=== PATIENT | female | born 1960 | race Caucasian/White ===

== ENCOUNTER 2022-01-14 08:21 | Day surgery (SDC) | payer BC ==
[~2022-01-14 08:21] MED LIST: Albuterol 0.083% 2.5 MG/3 ML Neb Soln NEB PRN; Clindamycin Phosphate in D5W 300 MG in Premix Bag 1 BAG IV ONE; HYDROmorphone 1 MG/ML Syringe IVPUSH PRN; Lactated Ringers 1,000 ML IV SCH; Metoclopramide 10 MG/2 ML SDV IVPUSH PRN; Morphine 4 MG/ML VIAL IVPUSH PRN; Naloxone 0.4 MG/ML SDV IVPUSH PRN; Ondansetron 4 MG/2 ML SDV IVPUSH PRN; Pregabalin 75 MG Cap PO SCH; Scopolamine 1.5 MG Transdermal Patch TRDERM ONE; fentaNYL 100 MCG/2 ML SDV IVPUSH PRN
[2022-01-14] MEDS: Clindamycin Phosphate in D5W 50 ML IV ONE ×2 (09:35→09:54)
[2022-01-14] MEDS ORDERED: fentaNYL 250 MCG/5 ML SDV ONE (09:49)
[2022-01-14] MEDS ORDERED: Propofol 200 MG/20 ML SDV ONE (09:49)
[2022-01-14] MEDS ORDERED: Bupivacaine 0.25% 30 ML SDV ONE (10:03)
[2022-01-14] MEDS ORDERED: Octyl 2-Cyanoacrylate 1 Tube ONE (10:03)
[2022-01-14] MEDS ORDERED: Famotidine 20 MG/2 ML SDV ONE (10:06)
[2022-01-14] MEDS ORDERED: Ondansetron 4 MG/2 ML SDV ONE (10:55)
[2022-01-14] MEDS ORDERED: Ketorolac 30 MG/ML SDV ONE (10:55)
[2022-01-14] MEDS ORDERED: ePHEDrine 50 MG/ML SDV ONE (10:55)
[2022-01-14] MEDS ORDERED: Rocuronium Bromide 50 MG/5 ML Syringe ONE (10:55)
[2022-01-14] MEDS ORDERED: Sugammadex Sodium 200 MG/2 ML VIAL ONE (10:55)
[2022-01-14] MEDS ORDERED: Glycopyrrolate 0.2 MG/ML SDV ONE (10:55)
[2022-01-14] MEDS ORDERED: fentaNYL 100 MCG/2 ML SDV ONE (11:14)
== END 2022-01-14 14:38 | disposition home or self-care (01) ==
LOC: MW.SDS 08:21
PROVIDERS: ATTEND Surgery
DX: K80.10 Calculus of gallbladder with chronic cholecystitis without obstruction (principal); K21.9 Gastro-esophageal reflux disease without esophagitis; E78.5 Hyperlipidemia, unspecified; Z88.0 Allergy status to penicillin; Z88.8 Allergy status to other drugs, medicaments and biological substances; Z79.899 Other long term (current) drug therapy; Z98.890 Other specified postprocedural states
CPT/HCPCS: 47562; A9270; J1885; J2370; J2405; J2704; J3010; J3490; J7120; 00790

== ENCOUNTER 2023-02-19 07:24 | Day surgery (SDC) | payer BC ==
[~2023-02-19 07:24] MED LIST changes: -Albuterol 0.083% 2.5 MG/3 ML Neb Soln NEB PRN; -Clindamycin Phosphate in D5W 300 MG in Premix Bag 1 BAG IV ONE; -HYDROmorphone 1 MG/ML Syringe IVPUSH PRN; +Lidocaine 2% 5 ML SDV ONE; -Metoclopramide 10 MG/2 ML SDV IVPUSH PRN; -Morphine 4 MG/ML VIAL IVPUSH PRN; -Naloxone 0.4 MG/ML SDV IVPUSH PRN; -Ondansetron 4 MG/2 ML SDV IVPUSH PRN; +Ondansetron 4 MG/2 ML SDV ONE; -Pregabalin 75 MG Cap PO SCH; -Scopolamine 1.5 MG Transdermal Patch TRDERM ONE; -fentaNYL 100 MCG/2 ML SDV IVPUSH PRN; +propofoL 50 ML ONE
[2023-02-19] MEDS ORDERED: fentaNYL 100 MCG/2 ML SDV ONE (08:55)
== END 2023-02-19 10:40 | disposition home or self-care (01) ==
LOC: MW.SDS 07:24
PROVIDERS: ATTEND Surgery
DX: Z12.11 Encounter for screening for malignant neoplasm of colon (principal); D12.6 Benign neoplasm of colon, unspecified; K62.1 Rectal polyp; K57.30 Diverticulosis of large intestine without perforation or abscess without bleeding; K21.9 Gastro-esophageal reflux disease without esophagitis; E66.3 Overweight; E78.5 Hyperlipidemia, unspecified; M79.7 Fibromyalgia; M85.80 Other specified disorders of bone density and structure, unspecified site; Z68.24 Body mass index [BMI] 24.0-24.9, adult; Z86.010 Personal history of colon polyps; Z88.0 Allergy status to penicillin; Z88.8 Allergy status to other drugs, medicaments and biological substances; Z79.899 Other long term (current) drug therapy; Z98.890 Other specified postprocedural states; Z90.49 Acquired absence of other specified parts of digestive tract
CPT/HCPCS: 45380; J2405; J2704; J3010; J7120; 00811; J3490